=== PATIENT | male | born 1995 | race Caucasian/White ===

== ENCOUNTER 2017-03-29 09:29 | Emergency (ER) | payer OTHER ==
[~2017-03-29] VITALS: Ht 180.3 cm; Wt 81.6 kg
[~2017-03-29 09:29] MED LIST: AMOX400T12 PO; AMOX500C2 PO; AMOX500T2 PO; HYDR-3812 PO; HYDR-757 PO
--- NOTE | 2017-03-29 10:35 | ED Upper Extremity ---
General Chief Complaint: Upper Extremity Stated Complaint: RT WRIST Nursing Triage Note: STATES HIS WRIST BEGAN TO HURT WHILE FLIPPING GLASS AT WORK LAST NOC. WAS TOLD HE HAD TO HAVE A WORK RELEASE NOTE BEFORE COMING BACK TO WORK. DENIES NEEDS AT THIS TIME. Nursing Sepsis Screen: No Definite Risk Source: patient Exam Limitations: no limitations History of Present Illness Time seen by provider: 10:32 Initial Comments Patient returns to the emergency room stating that his wrist began to hurt at work last night but now is completely better. He would Like a note to stating that he can return to work. Onset: yesterday Severity: moderate Method of Injury: other (lifting glass) Allergies and Home Medications Allergies Coded Allergies: No Known Drug Allergies (Unverified , 10/13/15) Home Medications No Active Prescriptions or Reported Meds Constitutional: see HPI EENTM: see HPI Respiratory: no symptoms reported Cardiovascular: no symptoms reported Genitourinary: no symptoms reported Musculoskeletal: no symptoms reported Skin: no symptoms reported Psychiatric/Neurological: No Symptoms Reported Past Ocibmtq-Srliyr-Jwootj Hx Patient Social History Alcohol Use: Denies Use Recreational Drug Use: No Smoking Status: Current Everyday Smoker Type Used: Cigarettes Recent Foreign Travel: No Contact w/Someone Who Travel: No Recent Infectious Disease Expo: No Recent Hopitalizations: No Immunizations Up To Date Tetanus Booster (TDap): Less than 5yrs Seasonal Allergies Seasonal Allergies: No Surgeries HX Surgeries: No Respiratory Hx Respiratory Disorders: Yes Respiratory Disorders: Asthma Cardiovascular Hx Cardiac Disorders: No Neurological Hx Neurological Disorders: No Genitourinary Hx Genitourinary Disorders: No Gastrointestinal Hx Gastrointestinal Disorders: No Musculoskeletal Hx Musculoskeletal Disorders: No Endocrine Hx Endocrine Disorders: No HEENT HX ENT Disorders: No Cancer Hx Cancer: No Psychosocial Hx Psychiatric Problems: No Integumentary HX Skin/Integumentary Disorder: No Blood Transfusions Hx Blood Disorders: No Adverse Reaction to a Blood Tr: No Physical Exam Vital Signs Vital Sign - Last 12Hours 03/29/17 09:55 Temp 98.0 Pulse 80 Resp 16 B/P (MAP) 156/83 Pulse Ox 98 Capillary Refill : Less Than 3 Seconds General Appearance: WD/WN, no apparent distress HEENT: PERRL/EOMI, normal ENT inspection Neck: non-tender, full range of motion Respiratory: no respiratory distress, no accessory muscle use Gastrointestinal: normal bowel sounds, non tender Shoulder: normal inspection, non-tender Elbow/Forearm: normal inspection, non-tender Wrist: Yes normal inspection, Yes non-tender, Yes no evidence of injury, Yes normal ROM (no tenderness, moves wrist in all directions without pain.) Hand: normal inspection, non-tender, no evidence of injury Neurologic/Tendon: normal sensation, normal motor functions Neurologic/Psychiatric: alert, normal mood/affect, oriented x 3 Skin: normal color, warm/dry Progress/Results/Core Measures Results/Orders Vital Signs/I&O Vital Sign - Last 12Hours 03/29/17 09:55 Temp 98.0 Pulse 80 Resp 16 B/P (MAP) 156/83 Pulse Ox 98 Blood Pressure Mean: 107 Departure Impression Impression: Primary Impression: In need of work note Disposition: 01 HOME, SELF-CARE Condition: Stable Departure-Patient Inst. Decision time for Depature: 10:34 Referrals: NO,LOCAL PHYSICIAN (PCP/Family) Primary Care Physician Patient Instructions: NO INSTRUCTIONS GIVEN Add. Discharge Instructions: 1. You may return to work today 2. All discharge instructions reviewed with patient and/or family. Voiced understanding. Scripts No Active Prescriptions or Reported KENISHA Alvarez APRN Mar 29, 2017 10:35
[2017-03-29 10:50] VITALS: BP 156/83
== END 2017-03-29 10:49 | disposition home or self-care (01) ==
LOC: EDUNIT# 09:29 → ER 09:33
DX: M25.531 Pain in right wrist (principal); F17.210 Nicotine dependence, cigarettes, uncomplicated
CPT/HCPCS: 99282